=== PATIENT | female | born 2000 ===

== ENCOUNTER 2024-08-17 10:10 | Day surgery (SDC) | payer BC ==
[2024-08-17] MEDS ORDERED: Glucagon 1 MG/ML KIT ONE (11:48)
[2024-08-17] MEDS ORDERED: Ondansetron PF 4 MG/2 ML Vial ONE ×3 (11:48→15:25)
[2024-08-17] MEDS ORDERED: Ondansetron ODT 4 MG TAB ONE (12:00)
[2024-08-17] MEDS ORDERED: fentaNYL PF 100 MCG/2 ML SYRINGE ONE (14:40)
[2024-08-17] MEDS ORDERED: SUCCINYLCHOLINE/SOD CL,ISO/PF 200 MG/10 ML SYRINGE FS ONE (14:40)
[2024-08-17] MEDS ORDERED: Rocuronium Bromide 10 MG/ML (10ML VIAL) ONE ×2 (14:40→15:24)
[2024-08-17] MEDS ORDERED: PROPOFOL 20 ML ONE ×2 (14:40→15:34)
[2024-08-17] MEDS ORDERED: Lidocaine 1% PF 5 ML VIAL ONE (14:42)
[2024-08-17] MEDS ORDERED: Esmolol 100 MG/10 ML VIAL ONE (15:25)
[2024-08-17] MEDS ORDERED: Dexamethasone 20 MG/5 ML VIAL ONE (15:25)
[2024-08-17] MEDS ORDERED: SUGAMMADEX SODIUM 200 MG/2 ML VIAL ONE (15:31)
== END 2024-08-17 17:05 | disposition home or self-care (01) ==
LOC: ERS 10:10 → SDC 14:19
PROVIDERS: ATTEND Internal Medicine Gastroenterology
PROC: 0DB18ZX Excision of Upper Esophagus, Via Natural or Artificial Opening Endoscopic, Diagnostic (ICD-10-PCS; principal; 2024-08-17)
PROC: 0D758ZZ Dilation of Esophagus, Via Natural or Artificial Opening Endoscopic (ICD-10-PCS; principal; 2024-08-17)
PROC: 0DB38ZX Excision of Lower Esophagus, Via Natural or Artificial Opening Endoscopic, Diagnostic (ICD-10-PCS; principal; 2024-08-17)
DX: T18.198A Other foreign object in esophagus causing other injury, initial encounter (principal); K22.2 Esophageal obstruction; K20.0 Eosinophilic esophagitis; Z79.899 Other long term (current) drug therapy; W44.8XXA Other foreign body entering into or through a natural orifice, initial encounter
CPT/HCPCS: 84702; 88305; 96372; 96374; C1776; J1100; J1611; J2405; J2704; Q0162